=== PATIENT | female | born 1950 | race Caucasian/White ===

== ENCOUNTER 2024-05-23 16:51 | Emergency (ER) | payer MEDICARE ==
[~2024-05-23] VITALS: Ht 162.6 cm; Wt 117.9 kg
[2024-05-23 17:28] LABS: BASOPHILS ABSOLUTE AUTO 0.03 K/mm3 (0.00-0.23); BASOPHILS PERCENT AUTO 0 % (0-2); EOSINOPHILS ABSOLUTE AUTO 0.15 K/mm3 (0.00-0.68); EOSINOPHILS PERCENT AUTO 2 % (0-6); Hematocrit 40.7 % (33.0-51.0); Hemoglobin 13.3 g/dL (11.5-16.0); IMMATURE GRAN ABSOLUTE AUTO 0.04 K/mm3 (0.00-0.10); IMMATURE GRAN PERCENT AUTO 1 % (0-1); LYMPHOCYTES ABSOLUTE AUTO 1.42 K/mm3 (0.84-5.20); LYMPHOCYTES PERCENT AUTO 17 % (21-46); MONOCYTES ABSOLUTE AUTO 0.44 K/mm3 (0.16-1.47); MONOCYTES PERCENT AUTO 5 % (4-13); Mean Corpuscular HGB Conc 32.7 g/dL (31.5-36.5); Mean Corpuscular Volume 95 fL (80-100); Mean Platelet Volume 10.4 fL (9.1-12.4); NEUTROPHILS ABSOLUTE AUTO 6.52 K/mm3 (1.96-9.15); NEUTROPHILS PERCENT AUTO 76 % (41-73); Platelet Count 206 K/mm3 (150-400); RDW Coefficient Variation 12.8 % (11.7-14.2); RDW Standard Deviation 44.6 fL (35.1-46.3); Red Blood Cell Count 4.29 M/mm3 (3.80-5.20)
[2024-05-23 17:58] LABS: Albumin, Blood 3.1 g/dL (3.4-5.0); Albumin/Globulin Ratio 0.8 (0.8-1.8); Bilirubin, Total 0.4 mg/dL (0.1-1.0); Bun/Creatinine Ratio 19.1 (12.0-20.0); Calcium, Blood 8.8 mg/dL (8.5-10.1); Creatinine, Blood 1.62 mg/dL (0.40-1.00); Total Protein, Blood 7.1 g/dL (6.4-8.2)
[2024-05-23] MEDS ORDERED: INSULANI SC (22:25)
== END 2024-05-23 22:50 | disposition home or self-care (01) ==
LOC: ER 16:51
PROVIDERS: Emergency Medicine
DX: E11.65 Type 2 diabetes mellitus with hyperglycemia (principal); Z91.013 Allergy to seafood; I10 Essential (primary) hypertension; Z85.3 Personal history of malignant neoplasm of breast
CPT/HCPCS: 80053; 85025; 99283

== ENCOUNTER 2024-11-17 08:13 | Day surgery (SDC) | payer MEDICARE ==
[~2024-11-17 08:13] MED LIST: INSULANI SC
[2024-11-17 15:59] VITALS: BP 150/86
[2024-11-17] MEDS ORDERED: BASAGLAR K100 UNIT/1 SC (16:59)
[2024-11-17] MEDS ORDERED: OZEMPIC0.25 MG/02 SC (17:01)
[2024-11-17] MEDS ORDERED: AMLO5 PO (17:01)
[2024-11-17] MEDS ORDERED: CLOP75 PO (17:03)
[2024-11-17] MEDS ORDERED: FURO20 PO (17:03)
[2024-11-17] MEDS ORDERED: EZET10 PO (17:03)
[2024-11-17] MEDS ORDERED: PRAVASTATIN SOD40 MG PO (17:04)
[2024-11-17] MEDS ORDERED: ALBU90OI INH (17:05)
[2024-11-17] MEDS ORDERED: LEVSOD112 PO (17:05)
== END 2024-11-17 16:07 | disposition home or self-care (01) ==
LOC: ATC 08:13
DX: C18.2 Malignant neoplasm of ascending colon (principal); I10 Essential (primary) hypertension; E03.9 Hypothyroidism, unspecified; E11.9 Type 2 diabetes mellitus without complications; J44.9 Chronic obstructive pulmonary disease, unspecified; G47.30 Sleep apnea, unspecified; Z88.8 Allergy status to other drugs, medicaments and biological substances; Z79.4 Long term (current) use of insulin; Z79.02 Long term (current) use of antithrombotics/antiplatelets; Z79.899 Other long term (current) drug therapy
CPT/HCPCS: 96523; J1642

== ENCOUNTER 2025-02-18 04:13 | Day surgery (SDC) | payer MEDICARE ==
[~2025-02-18 04:13] MED LIST changes: +ALBU90OI INH; +AMLO5 PO; +BASAGLAR K100 UNIT/1 SC; +CLOP75 PO; +EZET10 PO; +FURO20 PO; +LEVSOD112 PO; +OZEMPIC0.25 MG/02 SC; +PRAVASTATIN SOD40 MG PO
[2025-02-18 14:01] VITALS: BP 140/87
== END 2025-02-18 13:57 | disposition home or self-care (01) ==
LOC: ATC 04:13
DX: C18.2 Malignant neoplasm of ascending colon (principal); E11.9 Type 2 diabetes mellitus without complications; I10 Essential (primary) hypertension; E03.9 Hypothyroidism, unspecified; F44.9 Dissociative and conversion disorder, unspecified; Z79.4 Long term (current) use of insulin; Z79.890 Hormone replacement therapy; Z79.899 Other long term (current) drug therapy; Z88.8 Allergy status to other drugs, medicaments and biological substances; Z91.010 Allergy to peanuts; Z91.013 Allergy to seafood
CPT/HCPCS: 96523; J1642

== ENCOUNTER 2025-04-09 11:14 | Day surgery (SDC) | payer MEDICARE ==
[~2025-04-09] VITALS: Ht 165.1 cm; Wt 75.7 kg
[~2025-04-09 11:14] MED LIST changes: +Glycopyrrolate 0.2 MG/ML 1MLVIAL ONE; +Ondansetron HCl 2 MG / ML 2ML Vial ONE; +ePHEDrine Sulfate 50 MG/ML 1ML Injection ONE
[2025-04-09] MEDS ORDERED: OZEMPIC1 MG/0.72 (11:57)
== END 2025-04-09 13:21 | disposition home or self-care (01) ==
LOC: ORSCSDS 11:14
PROVIDERS: Internal Medicine Gastroenterology
PROC: 0DBF8ZX Excision of Right Large Intestine, Via Natural or Artificial Opening Endoscopic, Diagnostic (ICD-10-PCS; principal; 2025-04-09 13:30)
DX: Z12.11 Encounter for screening for malignant neoplasm of colon (principal); K63.5 Polyp of colon; K57.30 Diverticulosis of large intestine without perforation or abscess without bleeding; Z85.038 Personal history of other malignant neoplasm of large intestine; Z86.73 Personal history of transient ischemic attack (TIA), and cerebral infarction without residual deficits; Z79.02 Long term (current) use of antithrombotics/antiplatelets; Z79.899 Other long term (current) drug therapy; Z79.4 Long term (current) use of insulin; Z79.85 Long-term (current) use of injectable non-insulin antidiabetic drugs; Z87.891 Personal history of nicotine dependence
CPT/HCPCS: 82947; 88305; J0461; J2003; J2405; J2704; J7120

== ENCOUNTER 2025-04-22 01:12 | Day surgery (SDC) | payer MEDICARE ==
[~2025-04-22 01:12] MED LIST changes: -Glycopyrrolate 0.2 MG/ML 1MLVIAL ONE; +OZEMPIC1 MG/0.72; -Ondansetron HCl 2 MG / ML 2ML Vial ONE; -ePHEDrine Sulfate 50 MG/ML 1ML Injection ONE
[2025-04-22 14:40] VITALS: BP 150/78
== END 2025-04-22 14:46 | disposition home or self-care (01) ==
LOC: ATC 01:12
DX: Z45.2 Encounter for adjustment and management of vascular access device (principal); C18.2 Malignant neoplasm of ascending colon; E11.311 Type 2 diabetes mellitus with unspecified diabetic retinopathy with macular edema; E11.65 Type 2 diabetes mellitus with hyperglycemia; I10 Essential (primary) hypertension; E03.9 Hypothyroidism, unspecified; J44.9 Chronic obstructive pulmonary disease, unspecified; E78.00 Pure hypercholesterolemia, unspecified; Z79.4 Long term (current) use of insulin; Z79.890 Hormone replacement therapy; Z79.02 Long term (current) use of antithrombotics/antiplatelets; Z79.899 Other long term (current) drug therapy; Z88.8 Allergy status to other drugs, medicaments and biological substances; Z91.010 Allergy to peanuts; Z91.013 Allergy to seafood
CPT/HCPCS: 96523; J1642